=== PATIENT | female | born 1950 | race Caucasian/White ===

== ENCOUNTER 2021-09-25 17:47 | Inpatient (IN) | payer MEDICARE, OTHER ==
[~2021-09-25] VITALS: Ht 167.6 cm; Wt 104.1 kg
[2021-09-25 19:08] LABS: HEMOGLOBIN 11.3 gm/dl (12.3-15.3); RED BLOOD COUNT 3.63 M/UL (4.00-5.10); WHITE BLOOD COUNT 23.8 K/UL (4.5-11.0)
[2021-09-25 19:46] LABS: BUN/CREATININE RATIO 17 (0-10)
[2021-09-26 06:33] LABS: HEMOGLOBIN 10.9 gm/dl (12.3-15.3); RED BLOOD COUNT 3.52 M/UL (4.00-5.10); WHITE BLOOD COUNT 22.1 K/UL (4.5-11.0)
[2021-09-26] MEDS ORDERED: ALLOPURINOL100 MG PO (10:16)
[2021-09-26] MEDS ORDERED: GEMTESA75 MG PO (10:16)
[2021-09-26] MEDS ORDERED: LISINOPRIL-HCT1 EAC2 PO (10:16)
[2021-09-26] MEDS ORDERED: SIMVASTATIN20 MG PO (10:16)
[2021-09-26] MEDS ORDERED: ASPIRIN EC81 MG PO (10:17)
[2021-09-26] MEDS ORDERED: MULTIVITAMIN1 EACH PO (10:17)
[2021-09-26] MEDS ORDERED: FISH OIL 1,0001 EACH PO (10:17)
[2021-09-26] MEDS ORDERED: VITAMIN D325 MC6 PO (10:17)
[2021-09-26 14:01] LABS: CANDIDA ALBICANS Not Detected (Negative); CANDIDA KRUSEI Not Detected (Negative); CANDIDA TROPICALIS Not Detected (Negative); ESCHERICHIA COLI Not Detected (Negative); HAEMOPHILUS INFLUENZAE Not Detected (Negative); KLEBSIELLA OXYTOCA Not Detected (Negative); KLEBSIELLA PNEUMONIAE Not Detected (Negative); KPC-CARBAPENEM-RESISTANCE GENE Not Detected (Negative); PSEUDOMONAS AERUGINOSA Not Detected (Negative); SERRATIA MARCESANS Not Detected (Negative); STAPHYLOCOCCUS Not Detected (Negative); STAPHYLOCOCCUS AUREUS Not Detected (Negative); STREP AGALACTIAE (GROUP B) Not Detected (Negative); STREP PYOGENES (GROUP A) Not Detected (Negative); STREPTOCOCCUS Not Detected (Negative); vanA/B (VANCOMYCIN RESIST GENE Not Detected (Negative)
[2021-09-26 14:29] LABS: PROTEUS DETECTED (Negative)
[2021-09-27 02:06] LABS: HEMOGLOBIN 10.5 gm/dl (12.3-15.3); RED BLOOD COUNT 3.43 M/UL (4.00-5.10)
[2021-09-27 02:11] LABS: WHITE BLOOD COUNT 9.2 K/UL (4.5-11.0)
[2021-09-28 03:01] LABS: HEMOGLOBIN 10.3 gm/dl (12.3-15.3); RED BLOOD COUNT 3.33 M/UL (4.00-5.10)
[2021-09-28 03:09] LABS: WHITE BLOOD COUNT 6.8 K/UL (4.5-11.0)
[2021-09-29 03:19] LABS: HEMOGLOBIN 10.6 gm/dl (12.3-15.3); RED BLOOD COUNT 3.46 M/UL (4.00-5.10)
[2021-09-29 03:28] LABS: WHITE BLOOD COUNT 9.7 K/UL (4.5-11.0)
[2021-09-30 03:23] LABS: HEMOGLOBIN 10.2 gm/dl (12.3-15.3); RED BLOOD COUNT 3.24 M/UL (4.00-5.10)
[2021-09-30 03:57] LABS: BUN/CREATININE RATIO 38 (0-10)
[2021-09-30 04:03] LABS: WHITE BLOOD COUNT 13.4 K/UL (4.5-11.0)
[2021-10-01 16:47] LABS: HEMOGLOBIN 10.9 gm/dl (12.3-15.3); WHITE BLOOD COUNT 12.8 K/UL (4.5-11.0)
[2021-10-01 17:03] LABS: BUN/CREATININE RATIO 42 (0-10)
[2021-10-01 17:11] LABS: RED BLOOD COUNT 3.59 M/UL (4.00-5.10)
[2021-10-01] MEDS ORDERED: PATIENT'S OWN MEDICA PO (18:09)
[2021-10-01] MEDS ORDERED: PROVENTIL HFA6.7 GM INH (18:09)
[2021-10-01] MEDS ORDERED: OMNICEF 300 MG300 MG PO (18:09)
== END 2021-10-01 20:00 | disposition home or self-care (01) | DRG 853 ==
LOC: ER1 17:47 → CDU 09-26 03:13 → PROG CARE 09-26 03:13
PROVIDERS: Internal Medicine; Nurse Practitioner; ADMIT Internal Medicine
PROC: 3E03329 Introduction of Other Anti-infective into Peripheral Vein, Percutaneous Approach (ICD-10-PCS; principal; 2021-09-26)
PROC: 3E033XZ Introduction of Vasopressor into Peripheral Vein, Percutaneous Approach (ICD-10-PCS; 2021-09-26)
PROC: 0UDB7ZX Extraction of Endometrium, Via Natural or Artificial Opening, Diagnostic (ICD-10-PCS; 2021-09-28)
DX: A41.89 Other specified sepsis (principal); R65.21 Severe sepsis with septic shock; N17.9 Acute kidney failure, unspecified; N13.6 Pyonephrosis; Z20.822 Contact with and (suspected) exposure to COVID-19; I12.9 Hypertensive chronic kidney disease with stage 1 through stage 4 chronic kidney disease, or unspecified chronic kidney disease; N81.3 Complete uterovaginal prolapse; N95.0 Postmenopausal bleeding; N18.9 Chronic kidney disease, unspecified; N13.9 Obstructive and reflux uropathy, unspecified; D63.1 Anemia in chronic kidney disease; E78.5 Hyperlipidemia, unspecified; M10.9 Gout, unspecified; E66.9 Obesity, unspecified; B96.4 Proteus (mirabilis) (morganii) as the cause of diseases classified elsewhere; Z68.37 Body mass index [BMI] 37.0-37.9, adult
CPT/HCPCS: 0240U; 36415; 36600; 70450; 71045; 76830; 80048; 80053; 80307; 81001; 82550; 82553; 82803; 83605; 83735; 83880; 84100; 84439; 84443; 84484; 85025; 85027; 86140; 87040; 87077; 87086; 87150; 87186; 93005; 94640; 94664; 94760; 96372; 96374; 96375; 96376; 99285; J0696; J1100; J1644; J1650; J1940; J2001; J2185; J2250; J2405; J2704; J3010; J3370; J3480